=== PATIENT | female | born 1955 | race Caucasian/White ===

== ENCOUNTER 2022-10-07 13:29 | Outpatient (CLI) | payer MEDICARE | END 2022-10-07 13:30 | disposition home or self-care (01) | LOC: CSHSPEC 13:29 | PROVIDERS: ATTEND Family Medicine | DX: M54.16 Radiculopathy, lumbar region (principal); Z95.0 Presence of cardiac pacemaker; M47.816 Spondylosis without myelopathy or radiculopathy, lumbar region | CPT/HCPCS: 71045; 72148 ==